=== PATIENT | female | born 1995 | race Caucasian/White ===

== ENCOUNTER 2024-11-03 04:27 | Emergency (ER) | payer BC, SELFPAY ==
[2024-11-03 04:39] VITALS: BP 140/67; PULSE 80; RESP 16; TEMP 36.6; O2SAT 99; BMI 26.6
--- NOTE | 2024-11-03 04:52 | ED.GENADULT ---
HPI - General Adult General Chief complaint: Urogenital-Female Stated complaint: Abd pain, nausea, chills, aching, blood in urine Time Seen by Provider: 11/03/24 04:32 Source: patient Mode of arrival: Ambulatory History of Present Illness HPI narrative: 29-year-old female visiting the area from [facility], with history of prior remote UTI, none in the last couple of years, no recent antibiotic exposure, complains of chills 10:30 p.m., urgency and frequency of urination 0200, wiped after urination and had some blood on toilet paper. No vaginal bleeding. Has evdim-eiuvlye-oecp-left low back pain. Some nausea without emesis. No black or red stools, no loose stools. Related Data Previous Rx's ?Medication ?Instructions ?Recorded cefdinir 300 mg capsule 300 mg PO BID 10 days #20 caps 11/03/24 phenazopyridine 200 mg tablet 200 mg PO TID PRN pain #10 tabs 11/03/24 (Pyridium) Allergies Allergy/AdvReac Type Severity Reaction Status Date / Time No Known Drug Allergies Allergy Verified 11/03/24 04:39 Patient History Social History Smoking Status: Never smoker Smoking Status: Never smoker Exam Narrative Exam Narrative: GENERAL: Well-developed patient, in mild distress. HEAD: Atraumatic. Normocephalic. EYES: Pupils equal round and reactive. Extraocular motions intact. No scleral icterus. No injection or drainage. ENT: Nose without bleeding, purulent drainage. Throat without erythema, tonsillar hypertrophy or exudate. Airway patent. NECK: Trachea midline. Non tender CARDIOVASCULAR: Regular rate and rhythm without murmurs, gallops, or rubs. RESPIRATORY: Clear to auscultation. Breath sounds equal bilaterally. No wheezes, rales, or rhonchi. GASTROINTESTINAL: Abdomen soft, non-tender, nondistended. EXTREMITIES: No edema or joint tenderness. NEURO: AOx3. Motor functions grossly nonfocal. SKIN: No rash or erythema of visible areas Initial Vital Signs Initial Vital Signs: Vital Signs Temperature 97.8 F 11/03/24 04:39 Pulse Rate 80 11/03/24 04:39 Respiratory Rate 16 11/03/24 04:39 Blood Pressure 140/67 11/03/24 04:39 Pulse Oximetry 99 11/03/24 04:39 Oxygen Delivery Method Room Air 11/03/24 04:39 Course Orders Ordered: ED Orders 11/03/24 04:35 Urinalysis and Microscopic Stat Urine Culture Stat 11/03/24 04:48 Complete Blood Count AUTO DIFF Stat Comprehensive Metabolic Panel Stat HCG Quantitative /Beta subunit Stat Lipase Stat Discontinued Medications Hydrocodone Bitart/Acetaminophen (Hydrocodone/Acet 5/325 Prepack) 1 bottle MISC DIRECTED ONE Stop: 11/03/24 06:14 Last Admin: 11/03/24 06:19 Dose: 1 bottle Documented By: JEAN CARLOS Ceftriaxone Sodium 1,000 mg/ (Sodium Chloride) 100 mls @ 200 mls/hr IV NOW ONE Stop: 11/03/24 05:46 Last Infusion: 11/03/24 06:21 Dose: Infused Documented By: JEAN CARLOS Admin: 11/03/24 05:58 Dose: 200 mls/hr Documented By: JEAN CARLOS Ketorolac Tromethamine (Ketorolac 30 Mg/Ml Vial) 15 mg IV NOW ONE Stop: 11/03/24 05:46 Last Admin: 11/03/24 05:54 Dose: 15 mg Documented By: JEAN CARLOS Ondansetron HCl (Ondansetron 4 Mg Odt Prepack) 1 bottle MISC DIRECTED ONE Stop: 11/03/24 06:14 Last Admin: 11/03/24 06:19 Dose: 1 bottle Documented By: JEAN CARLOS Phenazopyridine HCl (Phenazopyridine 100 Mg Tablet) 200 mg PO NOW ONE Stop: 11/03/24 05:46 Last Admin: 11/03/24 05:53 Dose: 200 mg Documented By: JEAN CARLOS Vital Signs Vital signs: Vital Signs - 8 hr 11/03/24 04:39 11/03/24 06:17 Temperature 97.8 F Pulse Rate 80 69 Respiratory Rate 16 16 Blood Pressure 140/67 116/63 Pulse Oximetry 99 99 Oxygen Delivery Method Room Air Medical Decision Making Lab Data Lab results reviewed: Yes I reviewed the patient's lab results. Lab results narrative: White blood cell count 02436, hemoglobin 15, platelets adequate. Glucose 96. Normal renal function. Serum CO2 mildly low. Sodium 135 with potassium 3.7. Urinalysis with many bacteria, few epithelial cells, inflammatory markers present, urine culture triggered by protocol. 11/03/24 04:48 11/03/24 04:48 Labs: Lab Results 11/03/24 11/03/24 Range/Units 04:35 04:48 WBC 14.4 H (4.5-11.0) X10^3/uL RBC 4.94 (4.0-5.2) X10^6/uL Hgb 15.0 (12.0-16.0) g/dL Hct 44.1 (36-46) % MCV 89.4 (80-100) fL MCH 30.4 (26-34) PG MCHC 34.0 (30-36) % RDW 13.1 (11.6-14.8) % Plt Count 162 (150-400) X10^3/uL Neut % (Auto) 71.5 (50-75) % Lymph % (Auto) 20.0 L (25-40) % [place] % (Auto) 6.1 (3-14) % Eos % (Auto) 1.7 L (2-4) % Baso % (Auto) 0.7 (0-2) % Neut # (Auto) 32969 H (0403-5149) /uL Lymph # (Auto) 2900 (3912-1032) /uL [place] # (Auto) 900 (0-900) /uL Eos # (Auto) 200 (0-450) /uL Baso # (Auto) 100 (0-100) /uL Sodium 135 L (137-145) mmol/L Potassium 3.7 (3.4-5.1) mmol/L Chloride 105 (98-107) mmol/L Carbon Dioxide 21 L (22-32) mmol/L BUN 12 (7-17) mg/dL Creatinine 0.76 (0.52-1.04) mg/dL Estimated GFR > 60 (>60) mL/min BUN/Creatinine Ratio 15.8 (6-22) Glucose 96 (70-99) mg/dL Calcium 9.4 (8.4-10.2) mg/dL Total Bilirubin 0.6 (0.2-1.3) mg/dL AST 33 (14-36) IU/L ALT 30 (<35) IU/L Alkaline Phosphatase 56 (38-126) U/L Total Protein 7.5 (6.3-8.2) g/dL Albumin 4.5 (3.5-5.0) g/dL Globulin 3.0 (1.7-4.1) g/dL Albumin/Globulin Ratio 1.5 (1.0-2.8) Lipase 120 (23-300) U/L HCG, Quant < 2.39 mIU/mL Urine Color Yellow Urine Appearance Cloudy Urine pH 6.5 (4.5-8.0) Ur Specific [place] 1.015 (1.000-1.035) Urine Protein 2+ H (Negative) Urine Glucose (UA) Negative (Negative) g/dL Urine Ketones Negative (NEGATIVE) Urine Occult Blood 3+ H (Negative) Urine Nitrate Positive H (Negative) Urine Bilirubin Negative (NEGATIVE) Urine Urobilinogen 1.0 (0.2) E.U./dL Ur Leukocyte Esterase 2+ H (NEGATIVE) Urine RBC 30-100/hpf H (0-5/HPF) Urine WBC 30-100/hpf H (0-5/HPF) Ur Squamous Epith Cells 0-1 /hpf (0-5/HPF) Urine Bacteria Many (>30) H (None) Ur Culture Indicated? Specimen cultured Vol Urine Centrifuged 10ml (spun) MDM Narrative Medical decision making narrative: 29-year-old female with history of prior UTI, no recent infection, not taking recent antibiotics, has dysuria symptoms with frequency, and shaking chills. No fever at triage. Normotensive, no tachycardia. Ventral abdominal exam unremarkable. Urinalysis suspicious for infection with bacteriuria inflammatory cells, urine culture triggered by protocol. IV Toradol. IV ceftriaxone, prescription sent for oral cefdinir. ODT ondansetron. Home pack hydrocodone/APAP. Discharged home with family, patient and family expressed understanding of the plan. Encouraged to take antibiotics as directed. Consider recheck early this next week to check for urine culture results and sensitivity, and review of symptoms. Return precautions discussed. Discharge Plan Departure Patient Disposition: Home Clinical Impression: Pyelonephritis, Urinary tract infection Instructions: DI for Urinary Tract Infection (UTI) Activity Restrictions/Additional Instructions: Back pain with chills and frequency and urgency of urination, with some bloody appearing urine on toilet paper. No fever on triage. White blood cell count mildly elevated. Urinalysis did not look contaminated, had many bacteria and inflammatory cells, very suspicious for urine infection. Urine culture was triggered per protocol. test negative. Chills and back pain component suspicious for upper tract infection. We discussed advanced imaging such as CT/ultrasound, defer for now. IV ceftriaxone antibiotic given. We will treat for upper tract infection with broader spectrum antibiotic and longer course, cefdinir prescription for 10 days sent to your pharmacy. Pyridium dose also given to help take away the sting and discomfort of infection, prescription also sent to your pharmacy. Drink plenty of fluids. Home pack of pain medication to use if needed. Recheck symptoms and urine culture results Wednesday or Wednesday with your regular provider if at all possible. You should be contacted if your urine culture shows an agent that is resistant to cefdinir that was prescribed. Drink plenty of fluids. Return earlier to this/nearest emergency department for any change worsening symptoms or any concerns prior. Prescriptions: New phenazopyridine [Pyridium] 200 mg tablet 200 mg PO TID PRN (Reason: pain) Qty: 10 0RF cefdinir 300 mg capsule 300 mg PO BID 10 Days Qty: 20 0RF Stand Alone Forms: Patient Portal/API
[2024-11-03 05:07] LABS: Add Manual Diff / Slide Review NO; Hematocrit 44.1 % (36-46); Hemoglobin 15.0 g/dL (12.0-16.0); Lymphocytes Absolute Auto 2900 /uL (1100-4500); Mean Corpuscular HGB Conc 34.0 % (30-36); Mean Corpuscular Hemoglobin 30.4 PG (26-34); Mean Corpuscular Volume 89.4 fL (80-100); Platelet Count 162 X10^3/uL (150-400)
[2024-11-03 05:14] LABS: Appearance Urine UA CLOUDY; Bilirubin Urine UA NEGATIVE (NEGATIVE); Color Urine UA YELLOW; Glucose Urine UA NEGATIVE (Negative); Ketones Urine UA NEGATIVE (NEGATIVE); Leukocyte Esterase Urine UA 2+ (NEGATIVE); Nitrite Urine UA POSITIVE (Negative); Occult Blood Urine UA 3+ (Negative); Protein Urine UA 2+ (Negative); Specific Gravity Urine UA 1.015 (1.000-1.035); Urobilinogen Urine UA 1.0 E.U./dL (0.2)
[2024-11-03 05:15] LABS: pH Urine UA 6.5 (4.5-8.0)
[2024-11-03 05:24] LABS: Culture Indicated Urine Specimen Cultured
[2024-11-03 05:26] LABS: Alanine Aminotransferase 30 IU/L (<35); Albumin 4.5 g/dL (3.5-5.0); Albumin Globulin Ratio 1.5 (1.0-2.8); Alkaline Phosphatase 56 U/L (38-126); Blood Urea Nitrogen 12 mg/dL (7-17); Calcium 9.4 mg/dL (8.4-10.2); Carbon Dioxide 21 mmol/L (22-32); Chloride 105 mmol/L (98-107); Estimated Glomerular Filt Rate > 60 mL/min (>60); Globulin 3.0 g/dL (1.7-4.1); Glucose 96 mg/dL (70-99); HEMOLYSIS < 15 (0-50); Lipase 120 U/L (23-300); Potassium 3.7 mmol/L (3.4-5.1); Sodium 135 mmol/L (137-145); Total Protein 7.5 g/dL (6.3-8.2)
[2024-11-03] MEDS: PHENAZOPYRIDINE 100 MG TABLET 200 MG PO (05:53)
[2024-11-03] MEDS: KETOROLAC 30 MG/ML VIAL 15 MG IV (05:54)
[2024-11-03 06:07] LABS: HCG Quantitative /Beta subunit < 2.39 mIU/mL
[2024-11-03 06:17] VITALS: BP 116/63; PULSE 69; RESP 16; O2SAT 99
[2024-11-03] MEDS: ONDANSETRON 4 MG ODT PREPACK 1 BOTTLE MISC (06:19)
[2024-11-03] MEDS: HYDROCODONE/ACET 5/325 PREPACK 1 BOTTLE MISC (06:19)
== END 2024-11-03 06:25 | disposition home or self-care (01) ==
PROVIDERS: Emergency Provider Emergency Medicine
DX: N12 Tubulo-interstitial nephritis, not specified as acute or chronic (principal); N39.0 Urinary tract infection, site not specified
CPT/HCPCS: 36415; 80053; 81001; 83690; 84702; 85025; 87077; 87086; 87186; 96365; 96375; 99284; J0696; J1885